=== PATIENT | male | born 2005 | race Caucasian/White ===

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

== ENCOUNTER 2024-08-22 15:35 | Outpatient (CLI) | payer OTHER, SELFPAY ==
[2024-08-22 18:17] LABS: CRP < 0.5 mg/dL (<1.0)
[2024-08-22 18:42] LABS: Erythrocyte Sedimentation Rate 5 mm/hr (0-20)
[2024-08-22 20:16] LABS: Free T4 Free Thyroxine Reflex 0.98 ng/dL (0.78-2.19)
[2024-08-26 17:59] LABS: Immunoglobulin A 147 mg/dL (47-310); TTG IGA AB <1.0 U/mL
== END 2024-08-22 15:36 | disposition home or self-care (01) ==
LOC: ANHGOSHLAB 15:37
PROVIDERS: PCP Nurse Practitioner; Visit Provider Nurse Practitioner
DX: R10.9 Unspecified abdominal pain (principal); K92.89 Other specified diseases of the digestive system; R19.8 Other specified symptoms and signs involving the digestive system and abdomen; R11.0 Nausea
CPT/HCPCS: 36415; 82784; 84439; 84443; 84480; 85652; 86140; 86364

== ENCOUNTER 2024-09-22 12:27 | Outpatient (CLI) | payer OTHER, SELFPAY ==
--- OUTSIDE RECORDS SUMMARY | 2024-09-22 13:00 | XMS_ITS | Continuity of Care Document ---
Author Organization [facility] Address [address] [place] [address] Phone Care Team Providers Care Brick Catcher Name Role Phone Jennifer Ellington PA-C Unavailable Unavailable Allergies, Adverse Reactions, Alerts Substance Reaction Status Criticality amoxicillin Active No Information Medications Medication Instructions Dosage Effective Dates (start - stop) Status Comments CLARITIN (unknown strength) Not Available - Active PRILOSEC (unknown strength) Not Available - Active Advance Directives Directive Yes / No Effective Date File Name No Information Encounters Encounter Description Practice Location Reason(s) For Visit Diagnoses Date Provider Providers Copied on Encounter [facility], [address], [address], tel:[phone] [facility] Torus fracture of lower end of right radius with routine healing 8 Chandana Rodriguez. [address], [place], [place], [id number] . tel: [phone] [facility], [address], [place], [address], [place] tel:[phone] [facility] Closed torus fracture of distal end of right radius, initial encounter 8 Charley Willson. [address] [place], [place], [id number] . tel: [phone] Referring Provider: Deepthi Bello L, [address], [place], [address] . tel:[phone] Family History Family Member Type Diagnosis Age At Onset No Information Payers Payer name Insurance type Covered democrat ID Maria Esther sosa(s) [facility] Choice/Choice Plus [id number] Social History Type Description Quantity Date Captured Comments Sex Male Smoking Status No Information Chief Complaint And Reason For Visit No Information Reason For Referral Reason For Referral No Information Plan Of Treatment Date Type Action Status Referral Ordered: RADEX F/ARM 2 VIEWS RT ordered History Of Present Illness Encounter Date Complaint History Of Prese nt Illness No Information Functional Status Date Functional Assessmen t No Information Instructions Date Instruction Additional Infor mation No Information Assessments Type Assessment Date assessment Torus fracture of lo wer end of right radius with routine healing Patient Care Teams Name Effective Dates (start - stop) Status Members No Information
--- OUTSIDE RECORDS SUMMARY | 2024-09-22 13:00 | XMS_ITS | Clinical Summary ---
Author Organization [facility] Address [address] Attn: Epic Prelude ADT [place] [id number] Care Team Providers Care Varnish Remover Name Role Phone Unavailable Primary Care Provider Unavailabl e Allergies Active Allergy Reactions Criticality Noted Date Comments Amoxicillin-Pot Clavulanate Rash High 06/09/20 24 Medications oseltamivir (TAMIFLU) 75 mg capsule Take 1 capsule (75 mg) by mouth 2 times daily for 5 days Indications: Influenza B 10 Capsule 2 Active polymyxin B sulf-trimethopr im (POLYTRIM) 10,000 unit- 1 mg/mL solution Administer 1 drop into the right eye every 4 (four) hours while awake for 7 days 10 mL 06/04/2022 3:27 PM CDT 2 Active mupirocin (BACTROBAN) 2 % Ointment APPLY TOPICALLY FOUR TIMES DAILY DIRECTED 22 Gram 3 08/14/2022 1:21 PM ASSEMBLER FITTER 2 Active azithromycin (Zithromax Z-Niko) 250 mg tablet Take 2 tablets by mouth on day 1, then take 1 tablet by mouth once daily on days 2-5. 6 Tablet 09/13/2022 5:02 PM ASSEMBLER FITTER 3 Active cephALEXin (KEFLEX) 500 mg capsule Take 1 capsule (500 mg total) by mouth 2 (two) times a day for 10 days 20 Capsule 12/29/2022 6:01 PM CDT 3 Active azithromycin (ZITHROMAX) 250 mg tablet Take 2 tabs (500 mg) by mouth today, than 1 tab (250 mg) daily for 4 days. 6 Tablet 01/02/2023 6:01 PM CDT 3 Active methylPREDNISol one (MEDROL DOSPACK) 4 mg Tablets, Dose Pack Take as directed on package. 21 Tablet 01/02/2023 6:01 PM CDT 3 Active Sodium Fluoride (PreviDent 5000 Booster Plus) 1.1 % Paste Bishop teeth as directed by doctor 100 mL 2 08/07/2023 2:18 PM ASSEMBLER FITTER 3 Active methylPREDNISol one (MEDROL DOSPACK) 4 mg Tablets, Dose Pack Take as directed on package 21 Each 04/24/2024 6:43 PM CDT 4 Active lidocaine (XYLOCAINE) 2 % Solution Swish and swallow 10 mL by mouth every 6 (six) hours as needed (sore throat) May mix with 30 ml of Mylanta 100 mL 07/28/2024 7:02 PM ASSEMBLER FITTER 4 Active hyoscyamine 0.[address] 1 Tablet (0.125 mg) under tongue 4 times daily as needed for abdominal cramping. 120 Tablet 3 08/19/2024 11:09 AM ASSEMBLER FITTER 4 Active omeprazole (PriLOSEC) 20 mg Capsule, Delayed Release(E.C.) Take 1 Capsule (20 mg) by mouth daily. 30 Capsule 3 08/19/2024 11:09 AM ASSEMBLER FITTER 4 Active Social History Tobacco Use Types Packs/Day Years Used Date Smoking Tobacco: Never Assessed Adolescent Education Answer Date Record ed Getting School Help Needed Not on file 03/28 Sex and Gender Information Value Date Recorded Sex Assigned at Not on file Legal Sex Male 3:27 PM CDT Gender Identity Not on file Sexual Orientation Not on file Plan of Treatment Health Maintenance Due Date Last Done Comments CHLAMYDIA SCREENING (ANNUAL) 11-24 YEARS 12/24/2014 HPV VACCINES (1 - Male 3-dos e series) 12/24/2018 DTAP/TDAP/TD VACCINES (1 - Tdap) 12/24/2022 HEPATITIS B VACCINES (1 of 3 - 19+ 3-dose series) 12/24/2022 INFLUENZA VACCINE (#1) 2024 PNEUMOCOCCAL VACCINE 0-64 YEARS Aged Out No longer eligible based on patient's age to complete this topic Insurance RX [employer] (INTERNAL) [facility] [employer] RX [employer] RX Member Subscriber Plan / Payer (Ef fective 2022-Present) Name:Yeny Landael Relation to Subscriber:Self Name:Jordi Landa Subscriber ID:Not on file Payer ID:Not on file Group ID:[id number] Type:RX Commercial Address: [place] RX [employer] RX Member Subscriber Plan / Payer (Ef fective 2022-Present) Name:Jordi Landa Relation to Subscriber:Spouse Subscriber ID:Not on file Payer ID:Not on file Group ID:[id number] Type:RX Commercial Address: [place]
--- OUTSIDE RECORDS SUMMARY | 2024-09-22 13:00 | XMS_ITS | Continuity of Care Document ---
Author Organization [facility] Address [address] [place] [address] Phone Care Team Providers Care Hedge Fund Trader Name Role Phone Conversion MD, Doctor Unavailable Unavailabl e Medications Medication Instructions Dosage Effective Dates (start - stop) Status Comments VERAMYST 27.5MCG SPRAY(S) 1 QD-daily - Active Advance Directives Directive Yes / No Effective Date File Name No Information Encounters Encounter Description Practice Location Reason(s) For Visit Diagnoses Date Provider Providers Copied on Encounter [employer], [address], [place], [place], [id number], tel:[phone] Conversion Department No Information 1 Conversion Doctor. [facility] [place], [place], [facility], . [employer], [address] [place] [address], [id number], tel:[phone] [facility] INTRINSIC ASTHMA NOS 9 Steve Jose. [address] [place] [address], [id number], . tel:[phone] [employer], [address], [place], [place], [id number], tel:[phone] [facility] CHRONIC RHINITIS 8 Steve Garcia. [address] [place] [address], [id number], . tel:[phone] Family History Family Member Type Diagnosis Age At Onset No Information Payers Payer name Insurance type Covered libertarian ID Authoriza tion(s) No Information Social History Type Description Quantity Date Captured Comments Sex Male Smoking Status No Information Chief Complaint And Reason For Visit No Information Reason For Referral Reason For Referral No Information History Of Present Illness Encounter Date Complaint History Of Prese nt Illness No Information Functional Status Date Functional Assessmen t No Information Instructions Date Instruction Additional Infor mation No Information Assessments Type Assessment Date No Information Patient Care Teams Name Effective Dates (start - stop) Status Members No Information
--- OUTSIDE RECORDS SUMMARY | 2024-09-22 13:00 | XMS_ITS | Referral Summary ---
Author Organization [facility] [address] Address [address] [place] [id number] Care Team Providers Care Public Health Inspector Name Role Phone Tiff Davenport NP Primary Care Provider [phone] Deepthi Bello MD Unavailable [phone] Deepthi Bello MD Unavailable [phone] Encounters Date Type Department Care Team Description 08/01/2024 2:45 PM [employer] HEL[employer] Office Visit [facility] [address] [id number] Angelica Powell NP Pharyngitis, unspecified etiology (Primary Dx) 07/28/2024 6:33 PM SE[employer]ER PIPE LAYER HELPER - 07/28/2024 11:59 PM [employer] HELPER Hospital Encounter [address] [address] Sore throat Discharge Disposition: Discharge to home or self care 07/28/2024 6:15 PM [employer]AY[employer] HELPER Office Visit [facility] [address] [address] Angelica Powell NP Sore throat (Primary Dx) 07/17/2024 2:30 PM SE[employer]AYER HELPER Office Visit [facility] [address] [id number] Broderick Gardner NP Right acute serous otitis media, recurrence not specified (Primary Dx) from Last 3 Months Allergies Active Allergy Reactions Criticality Noted Date Comments Amoxicillin Hives Medium 12/03/2023 Amoxicillin-Pot Clavulanate Hives,Rash Medium 11/09/19 17 Medications loratadine (CLARITIN REDITABS) 10 mg disintegrating tablet Take 1 tablet (10 mg total) by mouth daily Active lidocaine viscous (XYLOCAINE) 2 % solutionIndications :Sore throat Apply 10 mL to the mouth or throat every 6 (six) hours as needed (sore throat) May mix with 30 ml of Mylanta 100 mL 4 Active Active Problems Problem Noted Date Diagnosed Date flu type B 05/18/2022 12/29/2022 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 complicati on 05/18/2022 12/29/2022 Fever 05/18/2022 12/29/2022 Tonsillitis 05/16/2022 12/29/2022 Constipation 12/24/2017 12/29/2022 Dyspepsia 12/24/2017 12/29/2022 Intermittent epigastric abdominal pain 8 12/29/2022 Anemia 11/08/2016 12/29/2022 Overview (12/29/2022): Neutropenia 11/08/2016 12/29/2022 Partial epilepsy (CMS/HCC) 07/03/201412/29 Chronic rhinitis 03/18/2012 12/29/2022 Social History Tobacco Use Types Packs/Day Years Used Date Smoking Tobacco: Never Smokeless Tobacco: Never Sex and Gender Information Value Date Recorded Sex Assigned at Not on file Legal Sex Male 7:14 AM SE[employer] P[employer] HEL[employer] Gender Identity Not on file Sexual Orientation Not on file Last Filed Vital Signs Vital Sign Reading Time Taken Comments Blood Pressure 110/62 08/01/2024 2:52 PM SE[employer] P[employer]AYER HELPER Pulse 62 08/01/2024 2:52 PM SE[employer]AYER HELPER Temperature 36.6 ??C (97.9 ??F) 08/01/2024 2 :52 PM SE[employer] P[employer] LAYER HELPER Respiratory Rate 16 08/01/2024 2:52 PM SEWER P[employer] LAYER HELPER Oxygen Saturation 99% 08/01/2024 2:5 2 PM SE[employer] P[employer] LAY[employer] HELPER Inhaled Oxygen Concentration - - Weight 67.1 kg (148 lb) 08/01/2024 2:52 PM SE[employer] P[employer] LAYER HELPER Height 170.2 cm (5' 7 ) 08/01/2024 2:52 PM SEWER PIPE LAYER HELPER reported by patient Body Mass Index 23.18 08/01/2024 2:52 PM SE[employer]ER P[employer] LAYER HELPER Plan of Treatment Not on file Procedures Procedure Name Priority Date/Time Associated Diagnosis Comments POCT RAPID STREP Routine 08/01/2024 2:59 PM SE[employer]ER HELPER Pharyngitis, unspecified etiology POCT MONONUCLEOSIS SCREEN Routine 07/28/2024 6:56 PM [employer] HELPER Sore throat POC INFLUENZA A/B, COVID-19 ANTIGEN Routine 07/28/2024 6:56 PM [employer] HELPER Sore throat POCT RAPID STREP Routine 07/28/2024 6:33 PM SE[employer] HELPER Sore throat THROAT CULTURE Routine 07/28/2024 6:33 PM SE[employer] HELPER Sore throat from Last 3 Months Results * POCT rapid strep A (08/01/2024 2:59 PM SEWER PIPE LAYER HELPER) Rapid Strep A, POC Negative Negative Swab 08/01/2024 2:59 PM SEW[employer] P[employer] LAYER HELPER Angelica Powell NP POINT OF CARE TEST ORDERAB LES Final Result * POC Influenza A/B, COVID-19 antigen (07/28/2024 6:56 PM SE[employer] P[employer] LAYER HELPER) Influenza A Ag, POC Negative Negative [facility] Influenza B Ag, POC Negative Negative [facility] COVID-19 Ag POC Presumptive Negative Presumptive Negative, Invalid [facility] Nasal 07/28/2024 6:56 PM SE[employer] P[employer] LAYER HELPER us Angelica Powell NP POINT OF CARE TEST ORDERAB LES Final Result [facility] [address] [place] [address], [facility] * POCT mononucleosis screen (07/28/2024 6:56 PM SEWER PIPE LAYER HELPER) Heterophile, POC negative Capillary blood 07/28/2024 6 :56 PM SEWER P[employer] LAYER HELPER Angelica Powell NP POINT OF CARE TEST ORDERAB LES Final Result * POCT rapid strep A (07/28/2024 6:33 PM SEWER PIPE LAYER HELPER) Rapid Strep A, POC Negative Negative Swab 07/28/2024 6:33 PM SEWER PIPE LAYER HELPER Angelica Powell NP POINT OF CARE TEST ORDERAB LES Final Result * Throat culture Throat (07/28/2024 6:33 PM SEWER PIPE LAYER HELPER) Report Final Report: No growth of pathogens. Comment:Testing performed by : [facility], [address] [place]., [address] Throat 07/28/2024 6:33 PM SEWER PIPE LAYER HELPER 07/29/2024 1:56 AM SEWER PIPE LAYER HELPER Narrative KAYCE RAZA - 07/29/2024 11:59 PM SE[employer]ER P[employer] LAYER HELPER Testing performed by [facility] ([phone]). Angelica Powell NP LAB MICROBIOLOGY - GENERAL ORDERABLES Final Result [facility] [id number] Department [place] [address] from Last 3 Months Insurance [facility] PL[facility] PL[facility] Care Teams Public Health Inspector Relationship Specialty Start Date End Date Tiff Davenport NP [address] [place] [address] [place] [address] PCP - General Internal Medicine 12/03/23 Deepthi Bello MD [address] [place] [address] Pediatrics 12/03/23 Deepthi Bello MD [address] [place] [address] 12/03/23
--- OUTSIDE RECORDS SUMMARY | 2024-09-22 13:00 | XMS_ITS | Patient Health Summary ---
Author Organization [facility] Address [address] [place] [address] Care Team Providers Care Light Coil Winder Name Role Phone Deepthi Bello MD Primary Care Provider [phone] Note from [facility],non-owned Affiliates and Associated Physician Practices is amultiple site organization consisting of ambulatory clinics and hospital sitesin [place], [place], [place] and [place]. This disclosure is being madepursuant to the Care Everywhere program and may not contain all information available regarding this patient. Last updated 18.[facility] Allergies * Augmentin(Rash) -Medium Criticality Medications * Be aware that medications may not be up to date on this document. Alwaysverify current medications with the patient. * loratadine-pseudoephedrine 24hr (CLARITIN-D) 10-240 MG tablet Take 1 Tab by mouth once daily * azithromycin (ZITHROMAX) 250 MG tablet Take 250 mg by mouth once daily * FERROUS SULFATE PO Take 1 Tab by mouth 2 times daily * benzonatate (TESSALON) 200 MG capsule(Started 06/30/2019) Take 1 capsule by mouth 3 times daily as needed for Cough Active Problems Problem Noted Date Diagnosed Date Anemia 11/08/2016 Neutropenia 11/08/2016 Social History Tobacco Use Types Packs/Day Years Used Date Smoking Tobacco: Never Smokeless Tobacco: Never Alcohol Use Standard Drinks/Week Comments No 0 (1 standard drink = 0.6 oz pur e alcohol) Sex and Gender Information Value Date Recorded Sex Assigned at Not on file Gender Identity Not on file Sexual Orientation Not on file Last Filed Vital Signs Vital Sign Reading Time Taken Comments Blood Pressure 100/60 06/30/2019 9:05 AM CONTACT OFFICER Pulse 69 06/30/2019 9:05 AM CONTACT OFFICER Temperature 36.9 ??C (98.4 ??F) 06/30/2019 9:05 AM CS T Respiratory Rate 16 06/30/2019 9:05 AM CONTACT OFFICER Oxygen Saturation 99% 06/30/2019 9:05 AM CONTACT OFFICER Inhaled Oxygen Concentration - - Weight 59.9 kg (132 lb) 06/30/2019 9:05 AM CONTACT OFFICER Height 171.5 cm (5' 7.5 ) 06/30/2019 9:05 AM CONTACT OFFICER Body Mass Index 20.37 06/30/2019 9:05 AM CONTACT OFFICER Procedures * INFLUENZA A+B - POINT OF CARE (AMB)(Performed 10/31/2018) Performed for Influenza * LAB RESULTS ORDER(Performed 02/26/2018) * PARVOVIRUS B19 PCR QUANT(Performed 04/05/2017) Performed for Iron deficiency anemia, unspecified iron deficiency anemia type * VITAMIN D 25-HYDROXY(Performed 04/05/2017) Performed for Iron deficiency anemia, unspecified iron deficiency anemia type * FERRITIN(Performed 04/05/2017) Performed for Iron deficiency anemia, unspecified iron deficiency anemia type * RETIC COUNT(Performed 04/05/2017) Performed for Iron deficiency anemia, unspecified iron deficiency anemia type * LDH BLOOD(Performed 04/05/2017) Performed for Iron deficiency anemia, unspecified iron deficiency anemia type * COMPREHENSIVE METABOLIC PANEL(Performed 04/05/2017) Performed for Iron deficiency anemia, unspecified iron deficiency anemia type * CBC W AUTO DIFFERENTIAL(Performed 04/05/2017) Performed for Iron deficiency anemia, unspecified iron deficiency anemia type * LAB RESULTS ORDER(Performed 03/27/2017) * RBC MORPHOLOGY(Performed 12/22/2016) Performed for Anemia, unspecified type * LEAD BLOOD(Performed 12/22/2016) Performed for Anemia, unspecified type * IRON + TRANSFERRIN PANEL(Performed 12/22/2016) Performed for Anemia, unspecified type * SOLUBLE TRANSFERRIN RECEPTOR(Performed 12/22/2016) Performed for Anemia, unspecified type * FERRITIN(Performed 12/22/2016) Performed for Anemia, unspecified type * PARVOVIRUS B19 PCR QUANT(Performed 12/22/2016) Performed for Anemia, unspecified type * LDH BLOOD(Performed 12/22/2016) Performed for Anemia, unspecified type * COMPREHENSIVE METABOLIC PANEL(Performed 12/22/2016) Performed for Anemia, unspecified type * RETIC COUNT(Performed 12/22/2016) Performed for Anemia, unspecified type * CBC W AUTO DIFFERENTIAL(Performed 12/22/2016) Performed for Anemia, unspecified type * LAB RESULTS ORDER(Performed 12/18/2016) * PARVOVIRUS B19 PCR QUANT(Performed 11/08/2016) Performed for Neutropenia, unspecified type (HCC), Microcytic anemia * HEMOGLOBIN ELECTROPHORESIS(Performed 11/08/2016) Performed for Neutropenia, unspecified type (HCC), Microcytic anemia * GORAN-GOODMAN VIRUS PCR QUANTITATIVE (VIRACOR)(Performed 11/08/2016) Performed for Neutropenia, unspecified type (HCC), Microcytic anemia * T4 FREE DIRECT DIALYSIS(Performed 11/08/2016) Performed for Neutropenia, unspecified type (HCC), Microcytic anemia * DIFFERENTIAL MANUAL(Performed 11/08/2016) Performed for Neutropenia, unspecified type (HCC), Microcytic anemia * URIC ACID BLOOD(Performed 11/08/2016) Performed for Neutropenia, unspecified type (HCC), Microcytic anemia * IRON + TRANSFERRIN PANEL(Performed 11/08/2016) Performed for Neutropenia, unspecified type (HCC), Microcytic anemia * TY BLOOD SCREEN W/REFLEX TITER(Performed 11/08/2016) Performed for Neutropenia, unspecified type (HCC), Microcytic anemia * VITAMIN D 25-HYDROXY(Performed 11/08/2016) Performed for Neutropenia, unspecified type (HCC), Microcytic anemia * RETIC COUNT(Performed 11/08/2016) Performed for Neutropenia, unspecified type (HCC), Microcytic anemia * TSH(Performed 11/08/2016) Performed for Neutropenia, unspecified type (HCC), Microcytic anemia * LDH BLOOD(Performed 11/08/2016) Performed for Neutropenia, unspecified type (HCC), Microcytic anemia * PHOSPHORUS BLOOD(Performed 11/08/2016) Performed for Neutropenia, unspecified type (HCC), Microcytic anemia * MAGNESIUM BLOOD(Performed 11/08/2016) Performed for Neutropenia, unspecified type (HCC), Microcytic anemia * IMMUNOGLOBULINS IGG/IGM/IGA PANEL(Performed 11/08/2016) Performed for Neutropenia, unspecified type (HCC), Microcytic anemia * FERRITIN(Performed 11/08/2016) Performed for Neutropenia, unspecified type (HCC), Microcytic anemia * COMPREHENSIVE METABOLIC PANEL(Performed 11/08/2016) Performed for Neutropenia, unspecified type (HCC), Microcytic anemia * CBC W AUTO DIFFERENTIAL(Performed 11/08/2016) Performed for Neutropenia, unspecified type (HCC), Microcytic anemia * BILIRUBIN DIRECT(Performed 11/08/2016) Performed for Neutropenia, unspecified type (HCC), Microcytic anemia * URINE MICROSCOPIC ONLY(Performed 11/08/2016) Performed for Neutropenia, unspecified type (HCC), Microcytic anemia * URINALYSIS REFLEX TO MICROSCOPIC NO CULTURE(Performed 11/08/2016) Performed for Neutropenia, unspecified type (HCC), Microcytic anemia * XR CHEST 2VW(Performed 11/08/2016) Performed for Neutropenia, unspecified type (HCC) Results * (ABNORMAL) INFLUENZA A+B - POINT OF CARE (AMB) (10/31/2018) Pathologist [facility] Influenza A Antigen Rapid Positive(A) Negative Influenza B Antigen Rapid Negative Negative Influenza Internal Control present NEGATIVE - POSITIVE Influenza Lot Number [id number] Influenza Expiration Date Other NASOPHARYNGEAL SWAB / Unknown 10/31/2018 Anupam Jones OSTEOPATHY DOCTOR-[facility] LAB - POINT OF CARE ORDERABLES * LAB RESULTS ORDER (02/26/2018 10:04 AM CDT) Only the most recent of3 resultswithin the time period is included. Narrative 02/26/2018 10:04 AM CDT Ordered by an unspecified provider. Scanned Document LAB - THERAPEUTIC DR MONITORING ORDERABLES * PARVOVIRUS B19 PCR QUANT (04/05/2017 3:15 PM CDT) Only the most recent of3 resultswithin the time period is included. Pathologist [facility] Parvovirus B19 PCR [id number] Negative copies/mL 04/10/2017 10:07 PM CDT [facility] ([facility]) Comment: The quantitative range of this assay is 500 to 10 million copies/mL. This test was developed and its performance characteristics determined by [employer]. It has not been cleared or approved by the Food and Drug Administration. The FDA has determined that such clearance or approval is not necessary. log10 Parvo PCR 4.204 ldc34sxay/mL 017 10:07 PM CDT [facility] ([facility]) Blood BLOOD SPECIMEN / Unknown Lab Venipuncture / Unknown 04/05/2017 3:15 PM CDT 04/05/2017 3:35 PM CDT Narrative [facility] ([facility]) - 04/10/2017 10:07 PM CDT Performed at: ??01 - [facility] [address] ??[id number] Turkey Farmer: Jose Pina MD, Phone: ??[phone] Sheryl Duffy MD LAB - SEROLOGY ORDER [place] [facility] ([facility]) [address] [place] [address] * VITAMIN D 25-HYDROXY (04/05/2017 3:15 PM CDT) Only the most recent of2 resultswithin the time period is included. [facility] Vitamin D, 25 Hydroxy 34.2 30 - 100 ng/mL 04/05/2017 4:59 PM CDT [facility] Blood BLOOD SPECIMEN / Unknown Lab Venipuncture / Unknown 04/05/2017 3:15 PM CDT 04/05/2017 3:35 PM CDT Narrative [facility] - 04/05/2017 4:59 PM CDT Vitamin D Status: ?Deficiency ? <20 ? ng/mL ?Insufficiency ?? 20-30 ??ng/mL ?Sufficiency ? 30-100 ng/mL ?Toxicity ? >100 ?ng/mL Sheryl Duffy MD LAB - CHEMISTRY RAY MACEDO [facility] [place] [address] * (ABNORMAL) RETIC COUNT (04/05/2017 3:15 PM CDT) Only the most recent of3 resultswithin the time period is included. [facility] Reticulocyte Count 1.01 % 04/05/2017 4:16 PM T [facility] Reticulocyte Absolute 0.0550 0.0416 - 0.0651 x10E6/uL 04/05/2017 4:16 PM CDT [facility] Reticulocyte Immature Fractionated 9.8 9.0 - 18.7 % 04/05/2017 4:16 PM CDT [facility] Hemoglobin Retic 29.7(L) 30.3 - 40.4 pg 04/05/2017 4:16 PM T [facility] Blood BLOOD SPECIMEN / Unknown Lab Venipuncture / Unknown 04/05/2017 3:15 PM CDT 04/05/2017 3:35 PM CDT Sheryl Duffy MD LAB - HEMATOLOGY ORD ERABLES [facility] [address] [place] [address] * (ABNORMAL) CBC W AUTO DIFFERENTIAL (04/05/2017 3:15 PM CDT) Only the most recent of3 resultswithin the time period is included. [facility] WBC 4.2(L) 4.5 - 14.5 x10E9/L 04/05/2017 4:16 PM [facility] WBC Corrected x10E9/L 04/05/2017 4:16 PM [facility] RBC 5.45(H) 4.50 - 5.30 x10E12/L 04/05/2017 4:16 PM T [facility] Hemoglobin 13.4 13.0 - 16.0 gm/dL 04/05/2017 4:16 PM T [facility] Hematocrit 41.6 37.0 - 49.0 % 04/05/2017 4:16 PM T [facility] MCV 76.3(L) 78.0 - 98.0 fl 04/05/2017 4:16 PM [facility] MCH 24.6(L) 25.0 - 35.0 pg 04/05/2017 4:16 PM T [facility] MCHC 32.2 31.0 - 37.0 gm/dL 04/05/2017 4:16 PM T [facility] Platelet Count 302 100 - 400 x10E9/L 04/05/2017 4:16 PM T [facility] RDW-CV 18.8(H) 11.5 - 14.0 % 04/05/2017 4:16 PM CDT [facility] MPV 8.5 6.0 - 9.5 fl 04/05/2017 4:16 PM T [facility] Neutrophils % 53.1 24.0 - 66.0 % 04/05/2017 4:16 PM CDT [facility] Lymphocytes % 35.6 22.0 - 61.0 % 04/05/2017 4:16 PM CDT [facility] Monocytes % 9.2 3.0 - 15.0 % 04/05/2017 4:16 PM CDT [facility] Eosinophils % 1.2 0.0 - 10.0 % 04/05/2017 4:16 PM CDT [facility] Basophils % 0.7 % 04/05/2017 4:16 PM CDT [facility] Immature Granulocytes 0.2 % 04/05/2017 4:16 PM CDT [facility] Neutrophil Absolute 2.25 x10E9/L 04/05/2017 4:16 PM CDT [facility] Lymphocytes Absolute 1.51 x10E9/L 04/05/2017 4:16 PM CDT [facility] Monocytes Absolute 0.39 x10E9/L 04/05/2017 4:16 PM T [facility] Eosinophils Absolute 0.05 x10E9/L 04/05/2017 4:16 PM T [facility] Basophils Absolute 0.03 x10E9/L 04/05/2017 4:16 PM T [facility] Immature Granulocytes Absolute 0.01 x10E9/L 04/05/2017 4:16 PM T [facility] nRBC Auto 0 /100 WBC 04/05/2017 4:16 PM T [facility] Blood BLOOD SPECIMEN / Unknown Lab Venipuncture / Unknown 04/05/2017 3:15 PM CDT 04/05/2017 3:35 PM CDT Sheryl Duffy MD LAB - HEMATOLOGY ORD ERABLES [facility] [address] [place] [address] * (ABNORMAL) COMPREHENSIVE METABOLIC PANEL (04/05/2017 3:15 PM CDT) Only the most recent of3 resultswithin the time period is included. Glucose 107(H) 70 - 105 mg/dL 04/05/2017 4:44 PM T [facility] Sodium 139 136 - 145 mmol/L 04/05/2017 4:44 PM [facility] Potassium 4.2 3.5 - 5.1 mmol/L 04/05/2017 4:44 PM [facility] Chloride 104 98 - 107 mmol/L 04/05/2017 4:44 PM [facility] CO2 27 20 - 28 mmol/L 04/05/2017 4:44 PM [facility] Calcium 9.62 8.92 - 10.32 mg/dL 04/05/2017 4:44 PM [facility] Anion Gap 8 5 - 20 mmol/L 04/05/2017 4:44 PM [facility] BUN 11.6 6.1 - 21.0 mg/dL 04/05/2017 4:44 PM [facility] Creatinine 0.66 0.62 - 1.00 mg/dL 04/05/2017 4:44 PM [facility] Alkaline Phosphatase 221 100 - 390 U/L 04/05/2017 4:44 PM [facility] ALT 17 6 - 46 U/L 04/05/2017 4:44 PM [facility] AST 23 3 - 35 U/L 04/05/2017 4:44 PM [facility] Protein Total 7.0 6.4 - 8.5 gm/dL 04/05/2017 4:44 PM [facility] Albumin 4.3 3.3 - 5.0 gm/dL 04/05/2017 4:44 PM [facility] Bilirubin Total 0.3 0.3 - 1.2 mg/dL 04/05/2017 4:44 PM [facility] eGFR by MDRD mL/min/1.7 3m2 04/05/2017 4:44 PM [facility] Comment: eGFR calculations are not performed for children under 18 years old. eGFR by MDRD mL/min/1.7 3m2 04/05/2017 4:44 PM CDT [facility] Comment: eGFR calculations are not performed for children under 18 years old. Blood BLOOD SPECIMEN / Unknown Lab Venipuncture / Unknown 04/05/2017 3:15 PM CDT 04/05/2017 3:35 PM CDT Sheryl Duffy MD LAB - CHEMISTRY RAY MACEDO Performing Organization Address City/[facility]/ZIP Co de Phone Number [facility] [address] [place] [address] * LDH BLOOD (04/05/2017 3:15 PM CDT) Only the most recent of3 resultswithin the time period is included. Pathologist [facility] LDH 250 140 - 260 U/L 04/05/2017 4:45 PM CDT [facility] Blood BLOOD SPECIMEN / Unknown Lab Venipuncture / Unknown 04/05/2017 3:15 PM CDT 04/05/2017 3:35 PM CDT Sheryl Duffy MD LAB - CHEMISTRY RAY MACEDO Performing Organization Address [facility] Co de Phone Number [facility] [address] [place] [phone] * FERRITIN (04/05/2017 3:15 PM CDT) Only the most recent of3 resultswithin the time period is included. Ferritin 15 10 - 140 ng/mL 04/05/2017 4:59 PM CDT [facility] Blood BLOOD SPECIMEN / Unknown Lab Venipuncture / Unknown 04/05/2017 3:15 PM CDT 04/05/2017 3:35 PM CDT Sheryl Duffy MD LAB - CHEMISTRY RAY MACEDO Performing Organization Address [facility] Co de Phone Number [facility] [address] [place] [address] * LEAD BLOOD (12/22/2016 11:04 AM CDT) [facility] Lead Blood <3.3 <5 ug/dL 12/22/2016 2:18 PM CDT [facility] Patient State [place] 12/22/2016 2:18 PM CDT [facility] Blood BLOOD SPECIMEN / Unknown 12/22/2016 11:04 AM CDT 12/22/2016 11:15 AM CDT Narrative [facility] - 12/22/2016 2:18 PM CDT Lead Notification for [place] Patients Sent to: [place] Lead Program [facility], [place] of Public Health Division of Environmental Health [address] [place] [address], [address] [place] [address] Recommendation for Retesting: If Blood Lead Result of Screening Test is: ?? Perform Diagnostic Test on Venous Blood within: ? 5-19 ug/dL ? 3 months ?20-44 ug/dL ? 1 month-1 week (the higher the results, the more need for follow up testing) ?45-59 ug/dL ?48 hours ?60-69 ug/dL ?24 hours ?>= 70 ug/dL ?Immediately as an emergency laboratory test. From CDC (Center for Disease Control) Screening Young Children for Lead Poisoning: Guidance for State and Local Public Health Officals. Juan J Bower MD LAB - CHEMISTRY RAY MACEDO [facility] [address] [place] [address] * (ABNORMAL) SOLUBLE TRANSFERRIN RECEPTOR (12/22/2016 11:04 AM CDT) Soluble Transferrin Receptor 70.4(H) 12.2 - 27.3 nmol/L 2016 3:13 PM CDT [facility] ([facility]) Blood BLOOD SPECIMEN / Unknown 12/22/2016 11:04 AM CDT 12/22/2016 11:13 AM CDT Narrative [facility] ([facility]) - 2016 3:13 PM CDT Performed at: ??01 - [facility] [address] ??[id number] Turkey Farmer: Jose Pina MD, Phone: ??[phone] Juan J Bower MD LAB - CHEMISTRY RAY MACEDO Performing Organization Address [facility] Co de Phone Number [facility] ([facility]) [address] [place] [address] * (ABNORMAL) RBC MORPHOLOGY (12/22/2016 11:04 AM CDT) Anisocytosis 2+(A) None 12/22/2016 2:49 PM CDT [facility] Hypochromia 2+(A) None 12/22/2016 2:49 PM CDT [facility] Microcytosis 2+(A) None 12/22/2016 2:49 PM CDT [facility] Poikilocytosis 2+(A) None 12/22/2016 2:49 PM CDT [facility] Ovalocytes 1+(A) None 12/22/2016 2:49 PM CDT [facility] Fragmented RBCs 1+(A) None 7 2:49 PM CDT [facility] Blood BLOOD SPECIMEN / Unknown 12/22/2016 11:04 AM CDT 12/22/2016 11:15 AM CDT Juan J Bower MD LAB - HEMATOLOGY ORD [place] [facility] [address] [place] [address] * (ABNORMAL) IRON + TRANSFERRIN PANEL (12/22/2016 11:04 AM CDT) Only the most recent of2 resultswithin the time period is included. [facility] Iron 15(L) 31 - 144 ug/dL 12/22/2016 12:06 PM CDT [facility] Transferrin 394(H) 189 - 388 mg/dL 12/22/2016 12:06 PM CDT [facility] TIBC Calculated 493(H) 250 - 400 mg/dL 12/22/2016 12:06 PM CDT [facility] Iron Saturation % 3(L) 20 - 50 % 12/22/2016 12:06 PM CDT [facility] Blood BLOOD SPECIMEN / Unknown 12/22/2016 11:04 AM CDT 12/22/2016 11:15 AM CDT Juan J Bower MD LAB - CHEMISTRY RAY MACEDO Performing Organization Address [facility] Co de Phone Number [facility] [address] [place] [address] * GORAN-GOODMAN VIRUS PCR QUANTITATIVE (VIRACOR) (11/08/2016 4:56 PM CDT) [facility] Goran-Goodman Virus DNA PCR Quantitative See Scanned Report 11/10/2016 10:20 PM CDT [facility] BLOOD SPECIMEN / Unknown 11/08/2016 4:56 PM CDT 11/08/2016 5:10 PM CDT Sheryl Duffy MD LAB - MICROBIOLOGY O [place] Performing Organization Address [facility]/ZIP Co de Phone Number [facility] [address] [place] [address] * T4 FREE DIRECT DIALYSIS (11/08/2016 4:56 PM CDT) [facility] T4 Free Direct Analysis Wheat Farmer 0.90 ng/dL 11/17/2016 1:12 PM CDT [facility] ([facility]) Comment: Reference Range: Pubertal Children and Adults: 0.8 - 1.7 Blood BLOOD SPECIMEN / Unknown 11/08/2016 4:56 PM CDT 11/08/2016 5:10 PM CDT Narrative [facility] ([facility]) - 11/17/2016 1:12 PM CDT Performed at: ??01 - [facility] [address] [place] [address], [place], [place] ??[id number] Turkey Farmer: Isaias Zamarripa MD, Phone: ??[phone] Sheryl Duffy MD LAB - CHEMISTRY RAY MACEDO [facility] ([facility]) [address] [place] [address] * HEMOGLOBIN ELECTROPHORESIS (11/08/2016 4:56 PM CDT) Pathologist [facility] Hemoglobin Electrophoresis See Scanned Report 11/23/2016 11:14 AM CDT [facility] Blood BLOOD SPECIMEN / Unknown 11/08/2016 4:56 PM CDT 11/08/2016 5:10 PM CDT Sheryl Duffy MD LAB - CHEMISTRY RAY MACEDO [facility] [address] [place] [address] * URIC ACID BLOOD (11/08/2016 4:55 PM CDT) [facility] Uric Acid 2.8 2.0 - 5.5 mg/dL 11/08/2016 6:13 PM CDT [facility] Blood BLOOD SPECIMEN / Unknown 11/08/2016 4:55 PM CDT 11/08/2016 5:10 PM CDT Sheryl Duffy MD LAB - CHEMISTRY RAY MACEDO [facility] [address] [place] [address] * TY BLOOD SCREEN W/REFLEX TITER (11/08/2016 4:55 PM CDT) Pathologist [facility] TY Negative Negative 11/09/2016 9:55 AM CDT [facility] Blood BLOOD SPECIMEN / Unknown 11/08/2016 4:55 PM CDT 11/08/2016 5:12 PM CDT Sheryl Duffy MD LAB - CHEMISTRY RAY MACEDO [facility] Organization Address City/State/ZIP Co de Phone Number [facility] [address] [place], [place] [id number] * (ABNORMAL) DIFFERENTIAL MANUAL (11/08/2016 4:55 PM CDT) WBC Auto 2.9 x10E9/L 11/08/2016 6:24 PM CDT [facility] WBC Corrected 4.5 - 14.5 x10E9/L 11/08/2016 6:24 PM CDT [facility] nRBC /100 WBC 11/08/2016 6:24 PM CDT [facility] Neutrophil % Manual 19(L) 24 - 66 % 11/08/2016 6:24 PM CDT [facility] Lymphocytes % Manual 70(H) 22 - 61 % 11/08/2016 6:24 PM CDT [facility] Monocytes % Manual 5 3 - 15 % 11/08/2016 6:24 PM CDT [facility] Basophils % Manual 2 % 11/08/2016 6:24 PM CDT [facility] Atypical Lymphocyte % Manual 4(H) <=0 % 11/08/2016 6:24 PM CDT [facility] Cells Counted 100 # cells 11/08/2016 6:24 PM CDT [facility] Platelet Estimation Adequate platelets Normal, Adequate platelets 11/08/2016 6:24 PM CDT [facility] WBC Morph Normal 11/08/2016 6:24 PM CDT [facility] Anisocytosis 2+(A) None 11/08/2016 6:24 PM CDT [facility] Hypochromia 3+(A) None 11/08/2016 6:24 PM CDT [facility] Microcytosis 2+(A) None 11/08/2016 6:24 PM CDT [facility] Poikilocytosis 2+(A) None 11/08/2016 6:24 PM CDT [facility] Ovalocytes 2+(A) None 11/08/2016 6:24 PM CDT [facility] Schistocytes 2+(A) None 11/08/2016 6:24 PM T [facility] Blood BLOOD SPECIMEN / Unknown 11/08/2016 4:55 PM CDT 11/08/2016 5:19 PM CDT Sheryl Duffy MD LAB - HEMATOLOGY ORD [place] Performing Organization Address [facility]/ZIP Co de Phone Number [facility] LABORATORY [address] [place] [address] * PHOSPHORUS BLOOD (11/08/2016 4:55 PM CDT) Phosphorus 4.24 3.00 - 6.01 mg/dL 11/08/2016 6:13 PM CDT [facility] Blood BLOOD SPECIMEN / Unknown 11/08/2016 4:55 PM CDT 11/08/2016 5:10 PM CDT Sheryl Duffy MD LAB - CHEMISTRY RAY MACEDO Performing Organization Address [facility] Co de Phone Number [facility] [address] [place] [phone] * MAGNESIUM BLOOD (11/08/2016 4:55 PM CDT) Magnesium 2.3 1.7 - 2.3 mg/dL 11/08/2016 6:13 PM CDT [facility] Blood BLOOD SPECIMEN / Unknown 11/08/2016 4:55 PM CDT 11/08/2016 5:10 PM CDT Sheryl Duffy MD LAB - CHEMISTRY ORDEugenie MACEDO Performing Organization Address [facility] Co de Phone Number [facility] [address] [place] [phone] * (ABNORMAL) BILIRUBIN DIRECT (11/08/2016 4:55 PM CDT) Bilirubin Direct 0.07(L) 0.11 - 0.54 mg/dL 11/08/2016 5:53 PM CDT [facility] Blood BLOOD SPECIMEN / Unknown 11/08/2016 4:55 PM CDT 11/08/2016 5:10 PM CDT Sheryl Duffy MD LAB - CHEMISTRY ORDEugenie MAYURAUGUST Performing Organization Address City/[facility]/ZIP Co de Phone Number [facility] [address] [place] [phone] * TSH (11/08/2016 4:55 PM CDT) TSH 3.71 0.35 - 4.95 uIU/mL 11/08/2016 6:35 PM CDT [facility] Blood BLOOD SPECIMEN / Unknown 11/08/2016 4:55 PM CDT 11/08/2016 5:10 PM CDT Sheryl Duffy MD LAB - CHEMISTRY ORDEugenie MACEDO Performing Organization Address [facility] Co de Phone Number [facility] [address] [place] [phone] * IMMUNOGLOBULINS PANEL (11/08/2016 4:55 PM CDT) IgA 125 63 - 484 mg/dL 11/08/2016 5:53 PM CDT [facility] IgG 665 540 - 1,822 mg/dL 11/08/2016 5:53 PM CDT [facility] IgM 128 22 - 240 mg/dL 11/08/2016 5:53 PM CDT [facility] Blood BLOOD SPECIMEN / Unknown 11/08/2016 4:55 PM CDT 11/08/2016 5:10 PM CDT Sheryl Duffy MD LAB - CHEMISTRY ORDEugenie MACEDO Performing Organization Address [facility]/ZIP Co de Phone Number [facility] [address] [place] [phone] * URINALYSIS ROUTINE AUTO (11/08/2016 4:47 PM CDT) Color UA Yellow Straw, Yellow, Dark Yellow 11/08/2016 5:59 PM CDT [facility] Clarity UA Clear 11/08/2016 5:59 PM CDT [facility] Specific [place] UA >=1.030 1.005 - 1.030 11/08/2016 5:59 PM CDT [facility] pH UA 6.5 5.0 - 8.0 pH 11/08/2016 5:59 PM CDT [facility] Protein UA Negative Negative 11/08/2016 5:59 PM CDT [facility] Blood UA Negative Negative 11/08/2016 5:59 PM CDT [facility] Leukocyte UA Negative Negative 11/08/2016 5:59 PM CDT [facility] Nitrite UA Negative Negative 11/08/2016 5:59 PM CDT [facility] Glucose UA Negative Negative 11/08/2016 5:59 PM CDT [facility] Ketone UA Negative Negative 11/08/2016 5:59 PM CDT [facility] Bilirubin UA Negative Negative 11/08/2016 5:59 PM CDT [facility] Urobilinogen UA 1.0 0.1 - 1.0 EU/dL 11/08/2016 5:59 PM CDT [facility] Urine URINE SPECIMEN OBTAINED BY CLEAN CATCH PROCEDURE / Unknown 11/08/2016 4:47 PM CDT 11/08/2016 5:18 PM CDT Sheryl Duffy MD LAB - URINALYSIS ORD ERABLES [facility] [place] [address] * (ABNORMAL) URINALYSIS MICROSCOPIC ONLY (11/08/2016 4:47 PM CDT) RBC UA 2-5 0-2, 2-5 # /hpf 11/08/2016 5:59 PM CDT [facility] WBC UA 2-5 0-2, 2-5 # /hpf 11/08/2016 5:59 PM CDT [facility] Bacteria UA 1+(A) None Seen, Trace 11/08/2016 5:59 PM CDT [facility] Epithelial Cell UA 5-10(A) 0-2, 2-5 # /hpf 11/08/2016 5:59 PM CDT [facility] Mucus UA 3+ 11/08/2016 5:59 PM CDT [facility] Urine URINE SPECIMEN OBTAINED BY CLEAN CATCH PROCEDURE / Unknown 11/08/2016 4:47 PM CDT 11/08/2016 5:18 PM CDT Sheryl Duffy MD LAB - URINALYSIS ORD ERABLES [facility] [place] [address] * XR CHEST PA AND LATERAL (11/08/2016 4:34 PM CDT) Anatomical Region Laterality Modality Chest Radiographic Christiana ging 11/08/2016 4:38 PM CDT Impressions 11/08/2016 4:39 PM CDT Clear lungs. Narrative 11/08/2016 4:39 PM CDT EXAMINATION: CHEST 2 VIEWS HISTORY: 10-year-old with neutropenia. Evaluate for mediastinal mass. COMPARISON: None. FINDINGS: PA and lateral views of the chest demonstrate clear lungs without focal consolidation, pleural effusion, or pneumothorax. The cardiomediastinal silhouette is normal. The visible osseous structures appear intact. Procedure Note Danielle Roberts MD - 11/08/2016 EXAMINATION: CHEST 2 VIEWS HISTORY: 10-year-old with neutropenia. Evaluate for mediastinal mass. COMPARISON: None. FINDINGS: PA and lateral views of the chest demonstrate clear lungs without focal consolidation, pleural effusion, or pneumothorax. The cardiomediastinal silhouette is normal. The visible osseous structures appear intact. IMPRESSION Clear lungs. Sheryl Duffy MD DIAGNOSTIC IMAGING O RDERABLES Care Teams Light Coil Winder Relationship Specialty Start Date End Date Deepthi Bello MD [address] [place] [address] [address] [place] [address] PCP - General Pediatrics 11/08/16
--- OUTSIDE RECORDS SUMMARY | 2024-09-22 13:00 | XMS_ITS | Clinical Summary ---
Author Organization [facility] [employer] Address [address] [place] [address] Care Team Providers Care Air Table Operator Name Role Phone Deepthi Bello MD Primary Care Provider [phone] Source Comments [facility],non-owned Affiliates and Associated Physician Practices is amultiple site organization consisting of ambulatory clinics and hospital sitesin [place], [place], [place] and [place]. This disclosure is being madepursuant to the Care Everywhere program and may not contain all information available regarding this patient. Last updated 18.[facility] [employer] Allergies Active Allergy Reactions Criticality Noted Date Comments Augmentin Rash Medium 11/08/2016 Medications * Be aware that medications may not be up to date on this document. Alwaysverify current medications with the patient. Medication Sig Dispensed Refills Start Date End Date Status loratadine-pseudoeph edrine 24hr (CLARITIN-D) 10-240 MG tablet Take 1 Tab by mouth once daily Active azithromycin (ZITHROMAX) 250 MG tablet Take 250 mg by mouth once daily Active FERROUS SULFATE PO Take 1 Tab by mouth 2 times daily Active benzonatate (TESSALON) 200 MG capsule Take 1 capsule by mouth 3 times daily as needed for Cough 30 capsule 06/30/2019 Active Active Problems Patient Care Coordination No te Formatting of this note migh t be different from the original. : [facility] Problem Noted Date Diagnosed Date Anemia 11/08/2016 Overview (11/08/2016): Neutropenia 11/08/2016 Social History Tobacco Use Types [...] Comments Blood Pressure 100/60 06/30/2019 9:05 AM MACHINE STEAK TENDERIZER Pulse 69 06/30/2019 9:05 AM MACHINE STEAK TENDERIZER Temperature 36.9 ??C (98.4 ??F) 06/30/2019 9:05 AM CS T Respiratory Rate 16 06/30/2019 9:05 AM MACHINE STEAK TENDERIZER Oxygen Saturation 99% 06/30/2019 9:05 AM MACHINE STEAK TENDERIZER Inhaled Oxygen Concentration - - Weight 59.9 kg (132 lb) 06/30/2019 9:05 AM MACHINE STEAK TENDERIZER Height 171.5 cm (5' 7.5 ) 06/30/2019 9:05 AM MACHINE STEAK TENDERIZER Body Mass Index 20.37 06/30/2019 9:05 AM MACHINE STEAK TENDERIZER Plan of Treatment Health Maintenance Due Date Last Done Comments HIV SCREENING 12/24/2018 HPV VACCINE (1 - Male 3-dose series) 12/24/2018 MENINGOCOCCAL (Group B) VACC INE (1 of 2 - Standard) 2019 HEPATITIS C SCREENING 12/20/2021 DTAP/TDAP/TD VACCINES (1 - Tdap) 12/24/2022 HEPATITIS B VACCINE (1 of 3 - 19+ 3-dose series) 12/24/2022 COVID-19 VACCINE (1 - 2023-2 5 season) 2024 INFLUENZA VACCINE (#1) 2024 DEPRESSION SCREENING 08/27/2024 ZOSTER VACCINE (1 of 2) 12/24/2053 HIB VACCINE Aged Out No longer eligi ble based on patient's age to complete this topic MENINGOCOCCAL VACCINE Aged Out No helen jaylyn eligible based on patient's age to complete this topic PNEUMOCOCCAL VACCINE Aged Out No long er eligible based on patient's age to complete this topic Care Teams Air Table Operator Relationship Specialty Start Date End Date Deepthi Bello MD [facility] [address] [place] [address] PCP - General Pediatrics 11/08/16
--- OUTSIDE RECORDS SUMMARY | 2024-09-22 13:00 | XMS_ITS | Referral Summary ---
Author Organization [facility] [employer] Address [address] [place] [address] Care Team Providers Care Core Stripper Name Role Phone Deepthi Bello MD Primary Care Provider [phone] Source Comments [facility],non-owned Affiliates and Associated Physician Practices is amultiple site organization consisting of ambulatory clinics and hospital sitesin [place], [place], [place] and [place]. This disclosure is being madepursuant to the Care Everywhere program and may not contain all information available regarding this patient. Last updated 18.[facility] [employer] Allergies Active Allergy Reactions Criticality Noted Date [...] Comments Blood Pressure 100/60 06/30/2019 9:05 AM SWIMMING POOL ATTENDANT Pulse 69 06/30/2019 9:05 AM SWIMMING POOL ATTENDANT Temperature 36.9 ??C (98.4 ??F) 06/30/2019 9:05 AM CS T Respiratory Rate 16 06/30/2019 9:05 AM SWIMMING POOL ATTENDANT Oxygen Saturation 99% 06/30/2019 9:05 AM SWIMMING POOL ATTENDANT Inhaled Oxygen Concentration - - Weight 59.9 kg (132 lb) 06/30/2019 9:05 AM SWIMMING POOL ATTENDANT Height 171.5 cm (5' 7.5 ) 06/30/2019 9:05 AM SWIMMING POOL ATTENDANT Body Mass Index 20.37 06/30/2019 9:05 AM SWIMMING POOL ATTENDANT Plan of Treatment Not on file Care Teams Core Stripper Relationship Specialty Start Date End Date Deepthi Bello MD [address] [facility] [address] [place] [address] PCP - General Pediatrics 11/08/16
--- OUTSIDE RECORDS SUMMARY | 2024-09-22 13:00 | XMS_ITS | Clinical Summary ---
Author Organization [facility] [address] Address [address] [place] [phone] Care Team Providers Care Lawn Technician Name Role Phone Tiff Davenport NP Primary Care Provider Deepthi Bello MD Unavailable [phone] Deepthi Bello MD Unavailable [phone] Allergies Active Allergy Reactions Criticality Noted Date [...] epilepsy (CMS/HCC) 07/03/201412/29 Chronic rhinitis 03/18/2012 12/29/2022 Encounters Date Type Department Care Team Description 08/01/2024 2:45 PM INTELLIGENCE SUPPORT OFFICER Office Visit [facility] at [address] [phone] Angelica Powell NP Pharyngitis, unspecified etiology (Primary Dx) 07/28/2024 6:33 PM INTELLIGENCE SUPPORT OFFICER - 07/28/2024 11:59 PM INTELLIGENCE SUPPORT OFFICER Hospital Encounter [place] [phone] Sore throat Discharge Disposition: Discharge to home or self care 07/28/2024 6:15 PM INTELLIGENCE SUPPORT OFFICER Office Visit [facility] at [address] [phone] Angelica Powell NP Sore throat (Primary Dx) 07/17/2024 2:30 PM INTELLIGENCE SUPPORT OFFICER Office Visit [facility] [address] [phone] Broderick Gardner NP Right acute serous otitis media, recurrence not specified (Primary Dx) from Last 3 Months Surgical History Surgery Date Site/Laterality Comments NE ADENOIDECTOMY PRIMARY <AGE 10 Adenoidectomy - 11/12/[address] Pao Ovalles (Added by TW Conv) Medical History Medical History Date Comments Other non-drug allergy Allergies - (Added by TW Conv) Personal history of other sp ecified conditions History of abdominal pain - (Added by TW Conv) Family History Medical History Relation Name Comments Irritable bowel syndrome Maternal Grandmother Family history of irritable bowel syndrome - (Added by TW Conv) Irritable bowel syndrome Mother Fam ann history of irritable bowel syndrome - (Added by TW Conv) Relation Name Status Comments Maternal Grandmother Mother Social History Tobacco Use Types Packs/Day Years Used Date Smoking Tobacco: Never Smokeless Tobacco: Never Sex and Gender Information Value Date Recorded Sex Assigned at Not on file Legal Sex Male 7:14 AM INTELLIGENCE SUPPORT OFFICER Gender Identity Not on file Sexual Orientation Not on file Obstetrics History Last Filed Vital Signs Vital Sign Reading Time Taken Comments Blood Pressure 110/62 08/01/2024 2:52 PM INTELLIGENCE SUPPORT OFFICER Pulse 62 08/01/2024 2:52 PM INTELLIGENCE SUPPORT OFFICER Temperature 36.6 ??C (97.9 ??F) 08/01/2024 2 :52 PM INTELLIGENCE SUPPORT OFFICER Respiratory Rate 16 08/01/2024 2:52 PM INTELLIGENCE SUPPORT OFFICER Oxygen Saturation 99% 08/01/2024 2:5 2 PM INTELLIGENCE SUPPORT OFFICER Inhaled Oxygen Concentration - - Weight 67.1 kg (148 lb) 08/01/2024 2:52 PM INTELLIGENCE SUPPORT OFFICER Height 170.2 cm (5' 7 ) 08/01/2024 2:52 PM INTELLIGENCE SUPPORT OFFICER reported by patient Body Mass Index 23.18 08/01/2024 2:52 PM INTELLIGENCE SUPPORT OFFICER Plan of Treatment Health Maintenance Due Date Last Done Comments Depression Screening 2003 Hepatitis C Screening 2003 Regular Well Visit/Exam 18-64 12/24/2021 DTaP/Tdap/Td Vaccine (7 - Td or Tdap) 01/01/2024 12/31/2013, 02/12/2008, 04/26/2005, Additional history exists Covid-19 Vaccine (2023-2 5 season) 2024 05/21/2021, 04/30/2021 Influenza Vaccine (#1) 2024 04/07/2022 Pneumococcal vaccine <65 Completed 005, 09/22/2004, 04/28/2004, Additional history exists Varicella Vaccines Completed 02/12/2008, 01/04/2005 HPV Vaccines Completed 05/24/2018, 10/29/2017 Meningococcal Vaccine Completed 03/25/2020, 015 Meningococcal B Vaccine Completed 04/27/2020, 03/25 Procedures Procedure Name Priority Date/Time Associated Diagnosis Comments POCT RAPID STREP Routine 08/01/2024 2:59 PM INTELLIGENCE SUPPORT OFFICER Pharyngitis, unspecified etiology POCT MONONUCLEOSIS SCREEN Routine 07/28/2024 6:56 PM INTELLIGENCE SUPPORT OFFICER Sore throat POC INFLUENZA A/B, COVID-19 ANTIGEN Routine 07/28/2024 6:56 PM INTELLIGENCE SUPPORT OFFICER Sore throat POCT RAPID STREP Routine 07/28/2024 6:33 PM INTELLIGENCE SUPPORT OFFICER Sore throat THROAT CULTURE Routine 07/28/2024 6:33 PM INTELLIGENCE SUPPORT OFFICER Sore throat from Last 3 Months Results * POCT rapid strep A (08/01/2024 2:59 PM INTELLIGENCE SUPPORT OFFICER) Rapid Strep A, POC Negative Negative Swab 08/01/2024 2:59 PM INTELLIGENCE SUPPORT OFFICER Angelica Powell PLANETARIUM TECHNICIAN POINT OF CARE TEST ORDERAB LES Final Result * POC Influenza A/B, COVID-19 antigen (07/28/2024 6:56 PM INTELLIGENCE SUPPORT OFFICER) Influenza A Ag, POC Negative Negative [facility] Influenza B Ag, POC Negative Negative [facility] COVID-19 Ag POC Presumptive Negative Presumptive Negative, Invalid [facility] Nasal 07/28/2024 6:56 PM INTELLIGENCE SUPPORT OFFICER Angelica Powell PLANETARIUM TECHNICIAN POINT OF CARE TEST ORDERAB LES Final Result Performing Organization Address City/State/[facility] Co de Phone Number [facility] [address] [place] [address] * POCT mononucleosis screen (07/28/2024 6:56 PM INTELLIGENCE SUPPORT OFFICER) Heterophile, POC negative Capillary blood 07/28/2024 6 :56 PM INTELLIGENCE SUPPORT OFFICER us Angelica Powell PLANETARIUM TECHNICIAN POINT OF CARE TEST ORDERAB LES Final Result * POCT rapid strep A (07/28/2024 6:33 PM INTELLIGENCE SUPPORT OFFICER) Rapid Strep A, POC Negative Negative Swab 07/28/2024 6:33 PM INTELLIGENCE SUPPORT OFFICER Result [facility] Angelica Powell NP POINT OF CARE TEST ORDERAB LES Final Result * Throat culture Throat (07/28/2024 6:33 PM INTELLIGENCE SUPPORT OFFICER) Report Final Report: No growth of pathogens. Comment:Testing performed by : [facility], [address] [place]., [address] Throat 07/28/2024 6:33 PM INTELLIGENCE SUPPORT OFFICER 07/29/2024 1:56 AM INTELLIGENCE SUPPORT OFFICER Narrative KAYCE Garcia 07/29/2024 11:59 PM INTELLIGENCE SUPPORT OFFICER Testing performed by [facility] ([phone]). Angelica Powell NP LAB MICROBIOLOGY - GENERAL ORDERABLES Final Result KAYCE [address] Department [place] [address] from Last 3 Months Insurance [facility] HMO/PPO Address: [facility] [address] [place] [address] [facility] CHOICE [employer]US [facility] HMO/PP[place]: [place] [address] Care Teams Lawn Technician Relationship Specialty Start Date End Date Tiff Davenport NP [address] [place] [address] [address] [facility] [place] [address] PCP - General Internal Medicine 12/03/23 Deepthi Bello MD [address] [place] [address] Pediatrics 12/03/23 Deepthi Bello MD [address] [place] [address] 12/03/23
[2024-09-27 14:48] LABS: Pancreatic Elastase, Stool >800 mcg/g (>200)
== END 2024-09-22 12:28 | disposition home or self-care (01) ==
LOC: ANHLAB 12:27
PROVIDERS: PCP Nurse Practitioner; Visit Provider Nurse Practitioner
DX: K92.89 Other specified diseases of the digestive system (principal); R19.8 Other specified symptoms and signs involving the digestive system and abdomen
CPT/HCPCS: 82653; 83993; 87045; 87427; 87449

== ENCOUNTER 2025-07-07 15:07 | Outpatient (CLI) | payer OTHER, SELFPAY ==
--- NOTE | ~2025-07-07 | US_ITS ---
EXAMINATION: US thyroid DATE: 07/07/2025 15:20 INDICATION: Hypothyroidism TECHNIQUE: Multiple ultrasound images of the thyroid were obtained. COMPARISON: None. FINDINGS: The right thyroid lobe measures 4.1 x 1.5 x 1.9 cm. The left thyroid lobe measures 3.6 x 1.2 x 1.6 cm. Isthmus: 1 mm The thyroid gland is heterogeneous in echotexture throughout. The thyroid gland is also hypervascular/hyperdynamic throughout. No dominant nodules or masses. IMPRESSION: 1. Heterogeneous hyperemic appearance of the thyroid consistent with thyroiditis. 2. No suspicious lesion or mass identified. Reviewed, dictated and finalized at location A. VERY DIRECTOR IMPRESSION: 1. Heterogeneous hyperemic appearance of the thyroid consistent with thyroiditi s. 2. No suspicious lesion or mass identified.
== END 2025-07-07 15:08 | disposition home or self-care (01) ==
PROVIDERS: PCP Nurse Practitioner; Visit Provider Nurse Practitioner
DX: E03.9 Hypothyroidism, unspecified (principal); R22.1 Localized swelling, mass and lump, neck
CPT/HCPCS: 76536